=== PATIENT | female | born 1980 | race Caucasian/White ===

== ENCOUNTER → 2020-02-03 11:22 | Outpatient (CLI) | payer BC, SELFPAY ==
--- NOTE | ~2020-02-03 | US_ITS ---
EXAMINATION: US pelvic complete DATE: 02/03/2020 11:55 INDICATION: Right lower quadrant pain Comparison:No prior studies for comparison. TECHNIQUE: Multiple transabdominal and endovaginal sonographic images of the pelvis performed. FINDINGS: The uterus measures 10.2 x 3.6 x 5 cm. The endometrial complex measures 12 mm. The right ovary measures 3.7 x 2.6 x 2.2 cm and the left ovary measures 3.1 x 2 x 2.6 cm. There is a 2.2 cm right ovarian cyst. There is no free fluid in the pelvis. There are no abnormal masses seen on either side. IMPRESSION: 1. 2.2 cm right ovarian cyst. 2: Endometrial thickening measuring 12 mm. Reviewed, dictated and finalized at location A.
== END ==
PROVIDERS: Visit Provider Obstetrics & Gynecology
DX: R10.32 Left lower quadrant pain (principal); N83.201 Unspecified ovarian cyst, right side; R93.89 Abnormal findings on diagnostic imaging of other specified body structures
CPT/HCPCS: 76856

== ENCOUNTER 2020-03-19 17:44 | Emergency (ER) | payer BC, SELFPAY ==
--- NOTE | ~2020-03-19 | XR_ITS ---
EXAMINATION: XR chest 2V EXAM DATE: 03/19/2020 18:14 INDICATION: Lt/Rt chest pain,Jaw/Throat Tightness, shortness of breath X 1 Day. TECHNIQUE: Frontal and lateral projections of the chest obtained and reviewed. There is no prior aron dy for comparison. FINDINGS: The lungs are clear. There are no pleural effusions. The cardiomediastinal silhouette is within normal limits. There is no pneumothorax suspected. The bones and soft tissues are unremarkab le. IMPRESSION: Normal chest x-ray exam. Reviewed, dictated and finalized at location A. IMPRESSION: Normal chest x-ray exam.
[2020-03-19 17:50] VITALS: BP 133/102; PULSE 92; RESP 20; TEMP 36.8; O2SAT 100
--- NOTE | 2020-03-19 17:50 | ECG_ITS ---
Measurements Intervals [place] Rate: 84 P: 65 FL: 112 QRS: 16 QRSD: 82 T: 34 QT: 348 QTc: 414 Interpretive Statements SINUS RHYTHM WITH SHORT FL INTERVAL RSR' IN V1 OR V2, CONSIDER RIGHT VENTRICULAR HYPERTROPHY OR RIGHT VCD BASELINE ARTIFACT- II, III, AVR, AVF, V3-V6 BORDERLINE ECG Electronically Signed On 03-19-2020 19:34:33 CDT by Júnior Thompson D.O.
[2020-03-19 18:06] LABS: Basophils Percent Auto 0.7 % (0.2-1.2); Eosinophils Absolute Auto 0.1 K/mm3 (0-0.3); Hematocrit 37.2 % (37.0-47.0); Hemoglobin 12.9 g/dL (12.0-15.0); Immature Granulocyte Absolute 0.02 K/mm3 (0.00-0.031); Immature Granulocyte Percent A 0.4 % (0-0.5); Lymphocytes Absolute Auto 1.92 K/mm3 (0.9-3.2); Lymphocytes Percent Auto 34.5 % (18.3-44.2); Mean Corpuscular HGB Conc 34.7 g/dl (32-36); Mean Corpuscular Hemoglobin 31.9 pg (26-34); Mean Corpuscular Volume 91.9 fl (80-100); Mean Platelet Volume 9.2 fl (7.4-10.4); Monocytes Absolute Auto 0.4 K/mm3 (0.1-0.6); Monocytes Percent Auto 6.6 % (2.6-8.5); Neutrophils Absolute Auto 3.1 K/mm3 (1.3-6.7); Neutrophils Percent Auto 55.8 % (45.5-73.1); Platelet Count Result 279 k/mm3 (150-375); Red Blood Count 4.05 M/mm3 (4.2-5.4); Red Cell Distribution Width 11.8 % (11.5-14.5); White Blood Count 5.6 K/mm3 (4.5-10.0)
--- NOTE | 2020-03-19 18:10 | ED.CHESTPAIN ---
HPI - Chest Pain General Chief Complaint: Chest Pain Stated Complaint: SOB, heavy throat, chest tightness Time Seen by Provider: 03/19/20 17:55 Source: patient and family Mode of arrival: ambulatory Limitations: no limitations History of Present Illness HPI narrative: Patient is a 39-year-old female who presents with a 2-hour episodic dyspnea that resolved patient denies pain patient notes over the last week she has also had some sensations of throat tightness that were self-limited patient denies URI symptoms or chest pain recent illness sick contacts patient had googled her symptoms and was concerned for potential for heart disease patient is otherwise been healthy does not smoke. Patient notes that she did the night before you psychedelic mushrooms. Patient on arrival today in no distress resting comfortably Related Data Allergies Allergy/AdvReac Type Severity Reaction Status Date / Time codeine AdvReac Nausea and Verified 03/19/20 18:00 Vomiting Review of Systems Review of Systems: All systems reviewed & are unremarkable except as noted in HPI and below PMFSH Surgical History Surgical History H/O breast augmentation Social History Social History (Updated 03/19/20 @ 18:11 by Zach Isidro PA-C) Smoking status: Never smoker Exam Narrative: Exam Narrative: GENERAL: Well-appearing, well-nourished, and in no acute distress. HEAD: Normocephalic, atraumatic. EYES: PERRLA and EOMI. ENT: Nares clear, no rhinorrhea or epistaxis. Mucous membranes moist. CHEST: Clear to auscultation. No respiratory distress. No wheezes rales or rhonchi HEART: Regular rate and rhythm. No murmur heard. Normal peripheral pulses. ABDOMEN: Soft, nontender, nondistended EXTREMITIES: Normal range of motion. No edema. SKIN: Warm, dry, no rash. NEURO: No focal deficits. Alert and oriented x3. Cranial nerves II through XII grossly intact PSYCH: Normal mood and affect. Course Course Emergency Course: Patient in the room in no distress aware of case findings treatment plan and diagnosis agreeing to follow-up as instructed has rested comfortably in the ER did not require any interventions Vital Signs Vital signs: Vital Signs Temperature 98.2 F 03/19/20 17:50 Pulse Rate 92 03/19/20 17:50 Respiratory Rate 20 03/19/20 17:50 Blood Pressure 133/102 H 03/19/20 17:50 Pulse Oximetry 100 03/19/20 17:50 Temperature 98.2 F 03/19/20 17:50 Pulse Rate 74 03/19/20 20:12 Respiratory Rate 18 03/19/20 20:12 Blood Pressure 118/73 03/19/20 20:12 Pulse Oximetry 99 03/19/20 20:12 MDM - Chest Pain MDM Narrative Medical decision making narrative: ITS Impressions Chest X-Ray 03/19/20 18:15 IMPRESSION: Normal chest x-ray exam. Patients EKGs and labs are without significant high risk changes. Cardiac risk factors were reviewed. Patient is felt likely to be low risk for ACS and reasonable for further risk stratification testing as an outpatient. Pain was not sudden or maximal in onset without tearing or ripping. quality. No other signs or symptoms to suggest aortic dissection. A low-risk Wells criteria is noted. PE is felt to be unlikely. No pneumonia or URI symptoms were seen on evaluation today. Patient is felt to b reasonable for continued evaluation as an outpatient. Lab Data Result diagrams: 03/19/20 17:55 03/19/20 17:55 Labs: Lab Results 03/19/20 03/19/20 03/19/20 Range/Units 17:55 17:55 17:55 WBC 5.6 (4.5-10.0) K/mm3 RBC 4.05 L (4.2-5.4) M/mm3 Hgb 12.9 (12.0-15.0) g/dL Hct 37.2 (37.0-47.0) % MCV 91.9 (80-100) fl MCH 31.9 (26-34) pg MCHC 34.7 (32-36) g/dl RDW 11.8 (11.5-14.5) % Plt Count 279 (150-375) k/mm3 MPV 9.2 (7.4-10.4) fl Immature Gran % (Auto) 0.4 (0-0.5) % Neut % (Auto) 55.8 (45.5-73.1) % Lymph % (Auto) 34.5 (18.3-44.2) % Mo
[2020-03-19 18:16] LABS: Prothrombin Time 13.1 Seconds (11.1-14.7)
[2020-03-19 18:17] LABS: Partial Thromboplastin Time 28.3 SECONDS (22.3-36.8)
[2020-03-19 18:19] LABS: Anion Gap 10 mmol/L (8-16); Blood Urea Nitrogen 12 mg/dL (7-17); Calcium 8.8 mg/dL (8.4-10.2); Carbon Dioxide 27 mmol/L (22-30); Chloride 103 mmol/L (98-107); Estimated Glomerular Filt Rate > 60; Glucose 93 mg/dL (65-105); Potassium 3.5 mmol/L (3.4-5.0); Sodium 140 mmol/L (137-145)
[2020-03-19 18:26] LABS: D Dimer 0.27 ug/mL (<0.48)
[2020-03-19 18:32] LABS: Troponin I < 0.012 ng/mL (0.000-0.034)
[2020-03-19 18:56] VITALS: BP 107/76; PULSE 77; RESP 20; O2SAT 98
--- NOTE | 2020-03-19 19:20 | PC.NURSE ---
assuming care of pt at this time. received report from nelida lomas.
[2020-03-19 19:25] LABS: Amphetamine Screen Urine Negative (Negative); Barbiturate Screen Urine Negative (Negative); Benzodiazepines Screen Urine Negative (Negative); Cannabinoid Screen Urine Negative (Negative); Cocaine Screen Urine Negative (Negative); Methadone Screen Urine Negative (Negative); Opiate Screen Urine Negative (Negative); Phencyclidine Screen Urine Negative (Negative)
[2020-03-19 20:12] VITALS: BP 118/73; PULSE 74; RESP 18; O2SAT 99
[2020-03-19 20:59] LABS: Troponin I < 0.012 ng/mL (0.000-0.034)
[2020-03-19 21:11] VITALS: BP 100/70; PULSE 72; RESP 20; O2SAT 100
== END 2020-03-19 21:12 | disposition home or self-care (01) ==
PROVIDERS: Emergency Medicine Emergency Medical Services; Emergency Provider Emergency Medicine
DX: R07.9 Chest pain, unspecified (principal); R94.31 Abnormal electrocardiogram [ECG] [EKG]
CPT/HCPCS: 36415; 71046; 80048; 80307; 84484; 85025; 85380; 85610; 85730; 93005; 99284

== ENCOUNTER → 2020-08-09 08:21 | Outpatient (CLI) | payer BC, SELFPAY ==
--- NOTE | ~2020-08-09 | MMUS_ITS ---
EXAMINATION: MM diag mary kate implant BI w aisha, US breast BI complete HISTORY: Palpable left breast abnormality. Left breast pain. TECHNIQUE: Additional 3-D tomosynthesis images of the breasts were performed and synthetic 2-D images were generated. CAD analysis was submitted and interpreted. High resolution bilateral complete breas t ultrasound was performed. COMPARISON: None BREAST PARENCHYMAL COMPOSITION: The breasts are extremely dense, which lowers the sensitivity of mamm ography. FINDINGS: MAMMOGRAPHIC FINDINGS: There are bilateral subglandular silicone implants. There is focal asymmetry in the lower inner quadr ant of the left breast in the area of palpable concern, although no discrete mass identified. There a re no suspicious masses, calcifications or architectural distortion in the right breast to suggest ma lignancy. ULTRASOUND: Right breast ultrasound: Normal heterogeneous echotexture without focal solid or cystic mass. Left breast ultrasound: At 9:00, 5 cm from the nipple in the area of palpable concern there is an irr egular shaped hypoechoic mass measuring 2.7 x 1.2 x 1.8 cm with mixed posterior attenuation. No inter nal vascularity. At 1:00, 8 cm from the nipple, there is a 7 mm cyst. At 2:00, 9 cm from the nipple, there is an oval hypoechoic mass measuring 6 mm with linear echogenic hilum, possibly intramammary ly mph node. No posterior features are identified. At 3:00, 4 cm from the nipple, there is an oval hypoe choic mass measuring 8 mm without posterior features or internal vascularity. There is linear echogen ic hilum. This mass is likely benign, although short-term follow-up is recommended. IMPRESSION: 1. Dominant 2.7 cm left breast mass in the area of palpable concern at 9:00, 5 cm from the nipple. Ul trasound-guided biopsy recommended. 2. Additional likely benign left breast masses are identified by ultrasound. Six-month follow-up ultr asound evaluation of these masses recommended. BI-RADS category 4, suspicious findings. Reviewed, dictated and finalized at location A. IMPRESSION: 1. Dominant 2.7 cm left breast mass in the area of palpable concern at 9:00, 5 cm from the nipple. Ultrasound-guided biopsy recommended. 2. Additional likely benign left breast masses are identified by ultrasound. Si x-month follow-up ultrasound evaluation of these masses recommended. BI-RADS category 4, suspicious findings.
== END ==
PROVIDERS: PCP Internal Medicine
DX: N64.4 Mastodynia (principal); R92.8 Other abnormal and inconclusive findings on diagnostic imaging of breast
CPT/HCPCS: 76641; 77062; 77066; G0279